=== PATIENT | male | born 1960 | race Two or more races ===

== ENCOUNTER → 2025-04-13 | Outpatient (CLI) | payer BC, SELFPAY ==
--- NOTE | 2025-04-13 | XR_ITS ---
Examination: Foot, left, 3 views Technique: AP, oblique, lateral views foot, 3 views Date and time of exam: April 13, 2025, 0732 hours INDICATIONS: Injury to foot 3 weeks ago with persistent foot pain. FINDINGS: Diffuse moderate narrowing metatarsophalangeal joints Moderate osteopenia. No acute fracture. Ossification Achilles insertion Ossification in the plantar fascia Soft tissue swelling dorsum of the foot IMPRESSION: No acute fracture
== END | disposition home or self-care (01) ==
LOC: CDIM 06:59
PROVIDERS: PCP Family Medicine; Referring Provider Physician Assistant; Visit Provider Physician Assistant
DX: M79.672 Pain in left foot (principal); S99.922A Unspecified injury of left foot, initial encounter; X58.XXXA Exposure to other specified factors, initial encounter
CPT/HCPCS: 73630